=== PATIENT | female | born 1965 | race Caucasian/White ===

== ENCOUNTER 2021-01-15 07:24 | Outpatient (REF) | payer BC, SELFPAY ==
--- NOTE | ~2021-01-15 | MM_ITS ---
EXAMINATION: MM SCREENING DIGITAL BREAST TOMOSYNTHESIS, BILATERAL CLINICAL INFORMATION: Screening. Asymptomatic. The lifetime risk of breast cancer based on the Tyrer-Cuzick Model is 9%. COMPARISON: Mammography: 08/02/2019, 04/11/2018, 09/24/2016 TECHNIQUE: Digital breast tomosynthesis is performed in both the craniocaudal and mediolateral oblique views along with computer-aided detection (CAD). Synthesized 2D images are generated from the tomosynthesis. FINDINGS: There are scattered areas of fibroglandular density (ACR BI-RADS breast composition Category b). There are no significant masses, abnormal calcifications, or other abnormalities. Parenchymal pattern is similar to prior studies. The axilla and skin contours are unremarkable. There are some scattered bilateral calcifications again noted, stable. MM/MM tomosynthesis screening BI IMPRESSION: No mammographic evidence of malignancy. ASSESSMENT: BI-RADS 2: Benign RECOMMENDATION: Routine annual mammography screening. This patient's information was entered into a reminder system with a target due date for their next mammogram.
== END 2021-01-15 07:25 | disposition home or self-care (01) ==
LOC: HO.MAMMO 07:24
PROVIDERS: PCP Internal Medicine; Visit Provider Internal Medicine
DX: Z12.31 Encounter for screening mammogram for malignant neoplasm of breast (principal)
CPT/HCPCS: 77063; 77067

== ENCOUNTER 2022-03-08 07:56 | Outpatient (REF) | payer BC, SELFPAY ==
--- NOTE | ~2022-03-08 | MM_ITS ---
EXAMINATION: MM SCREENING DIGITAL BREAST TOMOSYNTHESIS, BILATERAL CLINICAL INFORMATION: Screening. Asymptomatic. The lifetime risk of breast cancer based on the Tyrer-Cuzick Model is 7%. COMPARISON: Mammography: 01/15/2021, 08/02/2019, 04/11/2018 TECHNIQUE: Digital breast tomosynthesis is performed in both the craniocaudal and mediolateral oblique views along with computer-aided detection (CAD). Synthesized 2D images are generated from the tomosynthesis. FINDINGS: There are scattered areas of fibroglandular density (ACR BI-RADS breast composition Category b). There are no significant masses, abnormal calcifications, or other abnormalities. Parenchymal pattern is similar to prior studies. No developing density. The axilla are unremarkable. No significant changes. MM/MM tomosynthesis screening BI IMPRESSION: No mammographic evidence of malignancy. ASSESSMENT: BI-RADS 1: Negative RECOMMENDATION: Routine annual mammography screening. This patient's information was entered into a reminder system with a target due date for their next mammogram.
== END 2022-03-08 07:57 | disposition home or self-care (01) ==
LOC: HO.MAMMO 07:56
PROVIDERS: Visit Provider Internal Medicine
DX: Z12.31 Encounter for screening mammogram for malignant neoplasm of breast (principal)
CPT/HCPCS: 77063; 77067

== ENCOUNTER 2023-03-22 07:45 | Outpatient (REF) | payer BC, SELFPAY | END 2023-03-22 07:46 | disposition home or self-care (01) | LOC: HO.MAMMO 07:45 | PROVIDERS: Visit Provider Internal Medicine | DX: Z12.31 Encounter for screening mammogram for malignant neoplasm of breast (principal) | CPT/HCPCS: 77063; 77067 ==

== ENCOUNTER → 2023-03-22 07:45 | Outpatient (BNV) | payer BC, SELFPAY | PROVIDERS: Visit Provider Radiology Diagnostic Radiology | DX: Z12.31 Encounter for screening mammogram for malignant neoplasm of breast (principal) | CPT/HCPCS: 77063; 77067 ==

== ENCOUNTER 2024-04-18 07:23 | Outpatient (REF) | payer BC, SELFPAY ==
--- NOTE | ~2024-04-18 | MM_ITS ---
EXAMINATION: MM SCREENING DIGITAL BREAST TOMOSYNTHESIS, BILATERAL CLINICAL INFORMATION: Screening. Asymptomatic. COMPARISON: Mammography: Comparison is made with available priors TECHNIQUE: Digital breast mammography with tomosynthesis is performed in both the craniocaudal and mediolateral oblique views along with computer-aided detection (CAD). FINDINGS: The breasts are heterogeneously dense, which may obscure small masses (ACR BI-RADS breast composition Category c). There are no significant masses, abnormal calcifications, or other abnormalities. MM/MM tomosynthesis screening BI IMPRESSION: No mammographic evidence of malignancy. ASSESSMENT: BI-RADS BI-RADS 1 - Negative RECOMMENDATION: Routine annual mammography screening. 1 year F/U This examination should not preclude the clinical evaluation of a suspicious palpable abnormality. This patient's information was entered into a reminder system with a target due date for their next mammogram. Electronically signed by: Nika Arthur DO 05/01/2024 09:25 AM EDT
== END 2024-04-18 07:24 | disposition home or self-care (01) ==
LOC: HO.MAMMO 07:23
PROVIDERS: PCP Internal Medicine; Visit Provider Internal Medicine
DX: Z12.31 Encounter for screening mammogram for malignant neoplasm of breast (principal)
CPT/HCPCS: 77063; 77067

== ENCOUNTER → 2024-04-18 07:30 | Outpatient (BNV) | payer BC, SELFPAY | PROVIDERS: PCP Internal Medicine; Visit Provider Internal Medicine | DX: Z12.31 Encounter for screening mammogram for malignant neoplasm of breast (principal) | CPT/HCPCS: 77063; 77067 ==

== ENCOUNTER 2025-04-25 07:24 | Outpatient (REF) | payer BC, SELFPAY ==
--- OUTSIDE RECORDS SUMMARY | 2021-10-19 16:25 | XMS_ITS | Encounter Summary ---
Author Organization [facility] Address [address] [facility] [address] [place] [address] Phone Care Team Providers Care Clin Tech Name Role Phone Michael Woods MD Primary Care Provider [phone] Michael Woods MD Unavailable [phone] Renea Gunn MD Unavailable Encounter Details Date Type Department Care Team (Late st Contact Info) Description 10/19/2021 4:25 PM EDT Hospital Encounter [facility] [address] [place] [id number] Hope Garza CNP [address] [place] [address] [email or web address] Social History Tobacco Use Types Packs/Day Years Used Date Smoking Tobacco: Never Smokeless Tobacco: Never Alcohol Use Standard Drinks/Week Comments Yes 0 (1 standard drink = 0.6 oz pur e alcohol) 1-2 drinks, 2-3 x month Child or Family Care Answer Date Record ed Do you have problems with on e of the following making it difficult for you to work, study, or receive health care? No 03/19/2022 Education Answer Date Recorded Are you interested in help w ith more adult education (for example, completing high school, GED, job training, learning the [place] language, technical skills, or developing parenting skills)? No 04/27/2024 Are you concerned about learning? Not on file 04/27/2024 No 04/27/2024 Yes 04/27/2024 Food Answer Date Recorded Within the past 6 months we worried whether our food would run out before we got money to buy more. Never True 04/27/2024 Within the past 6 months the food we bought just didn't last and we didn't have enough money to get more. Never True Residential Stability Answer Date Recor ded What is your housing situation today? I have onelia sing 04/27/2024 How many times have you move d in the past 12 months? Zero (I did not move) 04/27/2024 Paying for Meds Answer Date Recorded Do you have trouble paying for medicines? No 04/27/2024 Paying Utility Bills Answer Date Record ed Do you have trouble paying your heating or elect ricity bill? No 04/27/2024 Transportation Answer Date Recorded Has the lack of transportati on kept you from medical appointments or from getting medications? No 04/27/2024 Unemployment Answer Date Recorded Are you currently unemployed or working on a part-time or temporary basis, and looking for work? No 03/19/2022 Digital Access Answer Date Recorded No 04/27/2024 Yes 04/27/2024 Do you have reliable internet access at home? Ye s 04/27/2024 Do you have a device (e.g., phone, tablet, computer) with a working camera? Yes 04/27/2024 Intimate Partner Violence Answer Date R ecorded Denied Basic Needs Not on file 04/27/2024 In the past 12 months have y ou been in a relationship with a person who hurts, threatens, or tries to control you? No 04/27/2024 Worried food would run out Not on file 04/27 In the past 12 months have y ou been in a relationship with a person who hurts, threatens, or tries to control you? No 04/27/2024 Comments No Sex and Gender Information Value Date Recorded Sex Assigned at Female 08/05/2020 9:42 AM EST Legal Sex Female 9:44 PM EDT Gender Identity Female 08/05/2020 9:42 AM EST Sexual Orientation Straight 08/05/2020 9: 42 AM EST documented as of this encounter Plan of Treatment Upcoming Encounters Date Type Department Care Team (Late st Contact Info) Description 05/08/2025 8:30 AM EDT Office Visit [facility] [address] [place] [address] Michael Woods MD [address] [place] [address] [email or web address] documented as of this encounter Procedures Procedure Name Priority Date/Time Associated Diagnosis Comments XR WRIST 3 OR MORE VIEWS (LEFT) Urgent/patient waiting 10/19/2021 4:35 PM EDT Pain and swelling of left wrist documented in this encounter Results * XR WRIST 3 OR MORE VIEWS (LEFT) (10/19/2021 4:35 PM EDT) Anatomical Region Laterality Modality Wrist Left Computed Radiogr aphy 10/19/2021 4:40 PM EDT Impressions 10/19/2021 4:51 PM EDT No fracture or dislocation. ATTESTATION: Valeriy Stevenson as teaching physician, have reviewed the images for this case and if necessary edited the report originally created by Harley Alanis. Narrative 10/19/2021 4:51 PM EDT XR WRIST 3 OR MORE VIEWS (LEFT) COMPARISON: None. FINDINGS: No fracture. The scaphoid bone appears intact. Normal alignment. Normal joint spaces. No soft tissue swelling. Procedure Note Uday Virgen MD, MPH - 10/19/2021 XR WRIST 3 OR MORE VIEWS (LEFT) COMPARISON: None. FINDINGS: No fracture. The scaphoid bone appears intact. Normal alignment. Normaljoint spaces. No soft tissue swelling. IMPRESSION: No fracture or dislocation. ATTESTATION: Valeriy Stevenson as teaching physician, have reviewed theimages for this case and if necessary edited the report originally createdby Harley Alanis. us Hope Friend Kayla ICT SALES REPRESENTATIVE IMG XR UPPER EXTREMITY Dilcia l Result documented in this encounter Visit Diagnoses Not on filedocumented in this encounter Additional Health Concerns Assessment Noted Time PHQ-2 Depression Total Score: 0 03/16/20 21 3:39 PM EDT documented as of this encounter Care Teams Clin Tech Relationship Specialty Start Date End Date Michael Woods MD [address] [place] [address] PCP - General 05/16/17 Michael Woods MD [address] [place] [address] Historical LMR Provider 05/21/17 03/21/22 Renea Gunn MD [address] [facility] [address] [place] [address] Ophthalmology 03/11/20 documented as of this encounter Additional Source Comments The information contained in this document represents components of the legal health record. It is not the complete legal health record.[facility]
--- NOTE | ~2025-04-25 | MM_ITS ---
EXAMINATION: MM SCREENING DIGITAL BREAST TOMOSYNTHESIS, BILATERAL CLINICAL INFORMATION: Screening. Asymptomatic. COMPARISON: Comparison made to multiple prior, most recent April 18, 2024, and most remote September 24, 2016. TECHNIQUE: Digital breast tomosynthesis is performed in mediolateral oblique and craniocaudal views along with computer-aided detection (CAD). Synthesized 2D images are generated from the tomosynthesis. FINDINGS: BREAST COMPOSITION: The breasts are heterogeneously dense, which may obscure small masses. BILATERAL BREASTS: No significant masses, suspicious calcifications or other abnormalities are seen in either breast. MM/MM tomosynthesis screening BI IMPRESSION: BILATERAL BREASTS: Negative, no mammographic evidence of malignancy. Normal interval follow-up is recommended in 12 months. ASSESSMENT: BI-RADS: Category 1: Negative RECOMMENDATION: Routine annual mammography screening. FOLLOW-UP: 1 year F/U This examination should not preclude the clinical evaluation of a suspicious palpable abnormality. This patient's information was entered into a reminder system with a target due date for their next mammogram. Electronically signed by: Miguel Angel Kaur MD 04/26/2025 07:24 PM EDT
--- OUTSIDE RECORDS SUMMARY | 2025-04-25 07:27 | XMS_ITS | Patient Health Record ---
Author Organization [facility] Address [address] [place] [address] Care Team Providers Care Hotel Staff Member Name Role Phone Chuck SPRINGER, Michael Primary Care Provider Kaleb Castaneda Unavailable [phone] Reason For Referral No Information Medications Medication SIG (Take, Route, Fr equency, Duration) Notes Start Date End Date Status Lipitor 80mg 1 po qd Active MoviPrep 100 GM as directed Orally a s directed for 1 dose 11/08/2013 Active Low-Ogestrel 1 po qd Active Problems Problem Type SNOMED Code ICD Code Onset Dates Problem Status W/U Status Risk Notes Problem Pre-surgery evaluation (253894171) Other specified pre-operative examination (V72.83) Active confirmed Problem Colon cancer screening (266192362) Colon cancer screening (V76.51) Active confirmed Plan Of Treatment Future Test Test Name Order Date COLONOSCOPY 11/08/2013 Insurance Providers Payer Name Payer Address Payer Phone Subscriber Number Group Number Insured Name Patient Relationship to Insured Coverage Start Date Coverage End Date [facility] [place] [employer] PROFESSIONAL CLAIMS [address] [place] [address] [phone] [id number] RIVAS Self - patient is the insured Medical (General) History Medical History History ICD Code Denies [place],DM,CVA,Lung disease,renal dise ase Hyperlipidemia
--- OUTSIDE RECORDS SUMMARY | 2025-04-25 07:28 | XMS_ITS | Clinical Summary ---
Author Organization [facility] Address [address] [employer] [address] [address] Phone Care Team Providers Care Platen Press Operator Apprentice Name Role Phone Michael Woods MD Primary Care Provider [phone] Michael Woods MD Unavailable [phone] Renea Gunn MD Unavailable [phone] Allergies Active Allergy Reactions Criticality Noted Date Comments Rosuvastatin Myalgia,Cramps Low 12/09/2017 Muscle cramps Latex Rash Low 10/19/2021 Medications cholecalciferol (VITAMIN D3) 1,000 unit tabletIndications:takin g 2000 IU daily Take 2,000 Units by mouth daily. Indications: taking 2000 IU daily Active loratadine-pseudoephedr ine (CLARITIN-D 12-HOUR) 5-120 mg [id number]:Allergi c rhinitis, unspecified seasonality, unspecified trigger Take 1 tablet by mouth every 12 (twelve) hours. 30 tablet 5 Active Additional Information Patient taking differently:1 tablet OralEvery morning, Reported on 05/03/2024 cyanocobalamin, vitamin B-12, 250 MCG tablet Take 250 mcg by mouth daily. Active b complex vitamins capsule Take 1 capsule by mouth daily. 30 capsule 3 021 Active calcium carbonate (CALTRATE 600 ORAL) Take 1,200 mg by mouth daily. Active fluticasone propionate (FLONASE ALLERGY RELIEF NASL) 2 sprays by Nasal route as needed. During Fall Active wheat dextrin (BENEFIBER CLEAR SF, DEXTRIN,) 3 gram/3.5 gram PwPk Take 2 teaspoonful by mouth every morning. Active ascorbic rdwh-slxgkvgf-bkz (EMERGEN-C) 1,000 mg PwEP Take 1 packet by mouth every morning. Active minoxidiL (LONITEN) 2.5 MG tablet Take 0.5 tablets by mouth every morning. 024 Active LORazepam (ATIVAN) 0.5 MG tabletIndications:Anxie ty Take 1 tablet (0.5 mg total) by mouth 2 (two) times a day as needed for anxiety. 30 tablet 1 024 Active atorvastatin (LIPITOR) 80 MG tabletIndications:Pure hypercholesterolemia Take 1 tablet (80 mg total) by mouth daily. 90 tablet 3 025 Active Active Problems Problem Noted Date Diagnosed Date Hyperlipidemia 12/12/2017 Pure hypercholesterolemia 12/12/2017 Vitamin D deficiency 12/12/2017 Immunizations Immunization Administration Dates Next Due COVID-19 (Pre-05/23) Pfizer Vaccine, mRNA, PF 10/26/2020 INFLUENZA, SPLIT VIRUS, TRIVALENT PF 05/30/2015, 08/22/2012 INFLUENZA, SPLIT VIRUS, TRIV ALENT W/ PRESERVATIVE IM 05/18/2016,05/30/2015,05/14/2014 Influenza Quadrivalent MDCK Preservative Free IM 06/10/2022 Influenza Quadrivalent Prese rvative Free IM 05/11/2023,04/09/2021,05/09/2020,06/08,06/27/2018 Td (adult) 5 Lf Tetanus Toxo id, PF, Adsorbed 12/12/2017 Tdap 03/01/2008 Varicella 03/07/2018,01/31/2018 02/28/2018 Family History Medical History Relation Comments Aortic aneurysm Father Brain cancer Father Head and neck cancer Father Hyperlipidemia Father Hypertension Father Throat cancer Father Hypertension Mother Pacemaker Mother Sick sinus syndrome Mother Hypertension Sister 1 Relation Status Comments Brother Alive Father (Age 76) Mother Alive pacemaker Sister 1 Alive Sister 2 Alive Social History Tobacco Use Types Packs/Day Years Used Date Smoking Tobacco: Never Smokeless Tobacco: Never Tobacco Cessation:Counseling Given: Not Answered Alcohol Use Standard Drinks/Week Comments Yes 0 [...] high school, GED, job training, learning the Tanz[place] language, technical skills, or developing parenting skills)? [...] Orientation Straight 08/05/2020 9: 42 AM EST Last Filed Vital Signs Vital Sign Reading Time Taken Comments Blood Pressure 142/80 05/03/2024 3:52 PM EDT Pulse 60 05/03/2024 3:52 PM EDT Temperature 36.4 C (97.5 F) 05/03/2024 3:52 PM EDT Respiratory Rate 12 05/03/2024 3:52 PM EDT Oxygen Saturation 97% 05/03/2024 3:52 PM EDT Inhaled Oxygen Concentration - - Weight 63.3 kg (139 lb 9.6 oz) 05/03/2024 3:52 P M EDT Height 157.7 cm (5' 2.09 ) 05/03/2024 3:52 PM ED T Body Mass Index 25.46 05/03/2024 3:52 PM EDT Plan of Treatment Upcoming Encounters Date Type Department Care Team (Late st Contact Info) Description 05/08/2025 8:30 AM EDT Office Visit [facility] Internal Medicine [address] [place] [address] Michael Woods MD [address] [place] [address] [email or web address] Health Maintenance Due Date Last Done Comments HIV ONE-TIME SCREENING (18-65 YEARS) 1981 COLOGUARD 2008 FIT TEST 2008 FOBT 2008 SIGMOIDOSCOPY 2008 VIRTUAL COLONOSCOPY 2008 PNEUMOCOCCAL VACCINES (50+ years) (1 of 1 - PCV) 2013 ZOSTER VACCINES (1 of 2) 05/02/2018 PAP SMEAR 08/06/2023 08/06/2020, 04/10/2013 COLONOSCOPY 05/20/2024 05/20/2014 COLORECTAL CANCER SCREENING 05/20/2024 INFLUENZA VACCINE (#1) 2025 , 06/10/2022, 04/09/2021, Additional history exists COVID-19 VACCINE ( season) 2025 06/10/2022, 01/28/2022, 05/25/2021, Additional history exists DEPRESSION SCREENING 04/27/2025 04/27/2024 MAMMOGRAM 05/07/2026 05/07/2024, 03/02, 03/08/2022, Additional history exists SCREENING FOR DIABETES 05/03/2027 05/03/2024, 2023 Adult Td,Tdap Booster 12/13/2027 12/12/2017, 008 LIPID PANEL 05/03/2029 05/03/2024, 03/01, 03/18/2023, Additional history exists RSV VACCINE (1 - 1-dose 75+ series) 2038 HEPATITIS C SCREENING Completed 12/14/2018, 019 SMOKING STATUS SCREENING (Once After 26 Yrs) Completed 05/03/2024 HEPATITIS A VACCINES Aged Out No long er eligible based on patient's age to complete this topic HIB VACCINES Aged Out No longer eligi ble based on patient's age to complete this topic MENINGOCOCCAL VACCINES (ACWY) Aged Out No longer eligible based on patient's age to complete this topic MENINGOCOCCAL VACCINES (B) Aged Out N o longer eligible based on patient's age to complete this topic Medical Devices Not on file Procedures Procedure Name Priority Date/Time Associated Diagnosis Comments HM MAMMOGRAPHY Routine 05/07/2024 11:40 AM EDT LIPID PANEL Routine 05/03/2024 4:16 PM EDT Pure hypercholesterolemia Routine general medical examination at a health care facility PAP TEST Routine 08/06/2020 12:00 AM EST HEPATITIS C ANTIBODY, QUALITATIVE Routine 12/14/2018 9:33 AM EDT Need for hepatitis C screening test from Last 3 Months or Most Recently Relevant to Health Maintenance Results * HM MAMMOGRAPHY FOR RESULT ENTRY ONLY (05/07/2024 11:40 AM EDT) us Unknown Unknown MD HEALTH MAINTENANCE Edited Res ult - Final * (ABNORMAL) Lipid panel (05/03/2024 4:16 PM EDT) HDL 104 mg/dL [facility] Comment: Interpretation <40 mg/dL: Low HDL cholesterol (major risk factor for CHD) Greater than or equal to 60 mg/dL: High HDL cholesterol ( negative risk factor for CHD) HDL - cholesterol is affected by a number of factors, e.g. smoking, excerise, hormones, sex and age. CHOLESTEROL 249(H) 0 - 240 mg/dL [facility] TRIGLYCERIDES 56 30 - 160 mg/dL [facility] LDL 134(H) 50 - 129 mg/dL [facility] Comment: LDL levels in terms of risk for coronary heart disease: <100 mg/dL: Optimal 100-129 mg/dL: Near or above optimal 130-159 mg/dL: Borderline high 160-189 mg/dL: High >190 mg/dL: Very High CARDIAC RISK RATIO 2.4(L) 3.3 - 4.4 C [facility] Blood 05/03/2024 4:16 PM EDT 05/03/2024 4:18 PM EDT us Michael Woods MD LAB BLOOD ORDERABLES Final Re sult [address] [address] * Pap Smear (08/06/2020 12:00 AM EST) 08/06/2020 08/07/2020 8:2 6 AM EST Narrative SEE NARRATIVE - 08/12/2020 9:26 AM EST [address] [address] Reed Worker: Mary Chavarria MD FLYER REPAIRER Cytology Report FINAL DIAGNOSIS A. PAP SMEAR (SUREPATH) CE: SPECIMEN ADEQUACY: Satisfactory for evaluation; transformation zone present. INTERPRETATION: NEGATIVE FOR INTRAEPITHELIAL LESION OR MALIGNANCY. Electronically Signed Out By: NEREYDA Tay(ASCP) The Pap test is a screening test primarily for squamous cancers and precursors and has associated false-negative and false-positive results. New technologies such as liquid-based preparations may decrease but will not eliminate all false-negative results. Regular sampling and follow-up of unexplained clinical signs and symptoms are recommended to minimize false negative results. PROCEDURES/ADDENDA HPV Testing (Requested) Ordered Date: 08/07/2020 A. PAP SMEAR (SUREPATH) CE: Human Papilloma Virus Test Negative for high-risk human papillomavirus types 16, 18, 45 and the Other high risk probe set (Includes 31, 33, 35, 39, 51, 52, 56, 58, 59, 66, 68) by Schedule C [email or web address] HR-HPV analysis. Clinical correlation is advised. This HPV test was performed at [facility], [address] [place] [address]. This test has been FDA approved for SurePath cervical cytology specimens. The accuracy and precision of this test for all other specimen sources has been verified in the Cytopathology Laboratory of the [facility] and has not been cleared or approved by the U.S. Food and Drug Administration. Clinical correlation is advised. CLINICAL HISTORY Date of Last Menstrual Period: Not Provided Menstrual History: Post Menopausal Other Clinical Conditions: Screening Pap SPECIMEN SOURCE A: PAP SMEAR (SUREPATH) CE Patient Name: KATLYN RIVAS : 1965 (Age: 55) Sex: F [facility] Date of Collection: 08/06/2020 Date of Reported: 08/11/2020 10:23 Results to: Catie Claros MD us Catie Claros MD CYTOLOGY ORDERABLES Edited Resul t - Final SEE NARRATIVE * Hepatitis C antibody, qualitative (12/14/2018 9:33 AM EDT) HCV Negative Negative [facility] Comment: This is a screening test and should be confirmed with molecular testing Blood 12/14/2018 9:33 AM EDT 12/14/2018 9:38 AM EDT us Michael Woods MD LAB BLOOD ORDERABLES Final Re sult [facility] [address] [place] [address] from Last 3 Months or Most Recently Relevant to Health Maintenance [place] [address] [place] [address] PPO EPO [facility] [place] [address] [place] [address] [address] [place] [address] PPO EPO Member Subscriber Plan / Payer (Ef fective 2019-Present) Name:Katlyn Rivas Relation to Subscriber:Self Name:Katlyn Rivas Payer ID:[id number] (NA) Type:PPO Address: [id number] [place] [id number] [place] [address] PPO EPO [facility] PPO EPO Member Subscriber Plan / Payer (Ef fective 2019-Present) Name:Katlyn Rivas Relation to Subscriber:Self Name:Katlyn Rivas Payer ID:[id number] (NAIC) Type:PPO Address: [id number] [place] [id number] [place] [address] [place] [address] [address] [place] [address] PPO EPO Care Teams Platen Press Operator Apprentice Relationship Specialty Start Date End Date Michael Woods MD [address] [place] [address] [email or web address] PCP - General 05/16/17 Michael Woods MD [address] [place] [address] [email or web address] Insurance Assigned Provider 11/05/23 Renea Gunn MD [address] [place] [address] [address] [place], [place] [id number] Ophthalmology 03/11/20 Additional Source Comments The information contained in this document represents components of the legal health record. It is not the complete legal health record.[facility]
== END 2025-04-25 07:25 | disposition home or self-care (01) ==
LOC: HO.MAMMO 07:24
PROVIDERS: PCP Internal Medicine; Visit Provider Internal Medicine
DX: Z12.31 Encounter for screening mammogram for malignant neoplasm of breast (principal)
CPT/HCPCS: 77063; 77067

== ENCOUNTER → 2025-04-25 07:30 | Outpatient (BNV) | payer BC, SELFPAY | PROVIDERS: PCP Internal Medicine; Visit Provider Radiology Body Imaging | DX: Z12.31 Encounter for screening mammogram for malignant neoplasm of breast (principal) | CPT/HCPCS: 77063; 77067 ==